=== PATIENT | male | born 1960 | race Caucasian/White ===

== ENCOUNTER 2023-02-07 07:02 | Outpatient (CLI) | payer MEDICARE, SELFPAY ==
--- NOTE | 2023-02-07 07:15 | CRLHL7_ITS ---
For Patients: As a result of the Century Cures Act, medical imaging exams and procedure reports are released immediately into your electronic medical record. You may view this report before your referring provider. If you have questions, please contact your health care provider. INDICATION: Low back and left leg pain. TECHNIQUE: Noncontrast MRI of the lumbar spine is performed in the usual fashion and compared to prior study from July 29, 2014. FINDINGS: Since the prior study there has been interval placement of bilateral transpedicular screws vertical stabilizing rods securing the L3, 4, 5 levels. Incidental hemangioma within the T12 vertebral body. Remainder of the lumbar spine demonstrates normal overall stature, alignment and intrinsic marrow signal. Conus is within normal limits. T12-L1: Unremarkable. L1-2: Minor broad-based posterior disc bulge results in no significant central canal or foraminal narrowing. L2-3: There is been interval development of severe bilateral facet arthropathy with a prominent synovial cyst emanating from the right facet that has a diameter of approximately 7 mm and extends cephalad a distance of 9 mm resulting in severe right lateral recess narrowing with compression of the right L2 nerve root prior to its exit from the right neural foramen and likely compresses the traversing right L3 nerve root within the right lateral recess. There is approximately 4 mm of fluid within both facet. Interval development of mild central canal narrowing. Moderate to severe left foraminal narrowing with compression of the exiting left L3 nerve root as well. Moderate left lateral recess narrowing. L3-4: Evidence of laminectomy. Central canal and neural foramina are patent. L4-5: Evidence of laminectomy. Central canal and neural foramina are patent. L5-S1: Central canal and neural foramina are patent. There appears to be sacralization of the L5 transverse processes. IMPRESSION: 1. Interval posterior L3-5 fusion. 2. Interval development of severe bilateral facet arthropathy at L2-3 with resultant moderate left lateral recess narrowing with mild central canal narrowing. A prominent synovial cyst emanates from the right facet and extends cephalad resulting in severe right foraminal narrowing and likely compression of the exiting right L2 as well as the traversing right L3 nerve root. Moderate to severe left foraminal narrowing is present as well resulting in compression of the exiting left L2 nerve root. 3. Milder degenerative changes within the remainder of the lumbar spine as outlined above. Dictated by Hubert Junior MD @ 02/07/2023 12:08:58 PM (Electronically Signed)
== END 2023-02-07 07:03 | disposition home or self-care (01) ==
PROVIDERS: PCP Family Medicine; Visit Provider Family Medicine
DX: M54.50 Low back pain, unspecified (principal); M51.26 Other intervertebral disc displacement, lumbar region; M79.605 Pain in left leg
CPT/HCPCS: 72148

== ENCOUNTER 2023-03-31 08:43 | Outpatient (CLI) | payer MEDICARE, SELFPAY | END 2023-03-31 08:44 | disposition home or self-care (01) | PROVIDERS: PCP Family Medicine; Visit Provider Family Medicine | DX: I10 Essential (primary) hypertension (principal); Z01.818 Encounter for other preprocedural examination | CPT/HCPCS: 80048; 85025 ==

== ENCOUNTER 2023-09-29 09:58 | Outpatient (CLI) | payer MEDICARE, SELFPAY | END 2023-09-29 09:59 | disposition home or self-care (01) | PROVIDERS: PCP Family Medicine; Visit Provider Family Medicine | DX: I10 Essential (primary) hypertension (principal); Z12.5 Encounter for screening for malignant neoplasm of prostate | CPT/HCPCS: 80048; 80061; 84153 ==

== ENCOUNTER 2023-10-12 10:43 | Emergency (ER) | payer MEDICARE, SELFPAY ==
[2023-10-12 10:56] VITALS: BP 131/93; PULSE 118; RESP 18; TEMP 36.3; O2SAT 96; BMI 30.8
--- NOTE | 2023-10-12 12:03 | ED_ITS ---
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 No other injuries. He simply washes this taped up, does not want any sutures, x-rays, or antibiotics. Moving hand fully, has normal sensation. Last tetanus was 2019 Related Data Home Medications Medication Instructions Recorded Confirmed aleeve 400 mg PO BID 10/12/23 10/12/23 Previous Rx's Medication Instructions Recorded gabapentin 600 mg tablet 1,800 mg (3 x 600 mg) PO TID #270 08/18/23 tabs amlodipine 10 mg tablet 10 mg PO QDAY #90 tabs 09/29/23 losartan 100 1 tab PO QDAY #90 tabs 09/29/23 mg-hydrochlorothiazide 25 mg tablet omeprazole 20 mg capsule,delayed 20 mg PO QDAY #90 caps 09/29/23 release Allergies Allergy/AdvReac Type Severity Reaction Status Date / Time vaccine adjuvant system, Allergy Severe arm Verified 09/29/23 09:35 AS01B lipo swelling [From Shingrix (PF)] varicella-zoster virus Allergy Severe arm Verified 09/29/23 09:35 glycoprotein swelling [From Shingrix (PF)] diclofenac Allergy Intermediate Hives Verified 09/29/23 09:35 lisinopril AdvReac Intermediate Cough Verified 09/29/23 09:35 Review of Systems Status of ROS: Reports: 6 or more systems reviewed and unremarkable except as noted in History and below [facility] Medical History (Updated 10/12/23 @ 12:06 by Nelson Rush MD) Primary hypertension ?I10 - Essential (primary) hypertension (ICD-10) Atrial fibrillation ?I48.91 - Unspecified atrial fibrillation (ICD-10) Helicobacter pylori gastritis ?K29.70 - Gastritis, unspecified, without bleeding (ICD-10) ?B96.81 - Helicobacter pylori [H. pylori] as the cause of diseases classified elsewhere (ICD-10) Lumbar facet arthropathy ?M47.816 - Spondylosis without myelopathy or radiculopathy, lumbar region (ICD-10) Gastroesophageal reflux disease ?K21.9 - Gastro-esophageal reflux disease without esophagitis (ICD-10) Fracture of both clavicles ?S42.001A - Fracture of unspecified part of right clavicle, initial encounter for closed fracture (ICD-10) ?S42.002A - Fracture of unspecified part of left clavicle, initial encounter for closed fracture (ICD-10) Spinal stenosis, lumbar region with neurogenic claudication ?M48.062 - Spinal stenosis, lumbar region with neurogenic claudication (ICD- 10) Surgical History (Updated 01/15/23 @ 10:43 by Dariel Monreal MD) Tibia/fibula fracture ?S82.209A - Unspecified fracture of shaft of unspecified tibia, initial encounter for closed fracture (ICD-10) ?S82.409A - Unspecified fracture of shaft of unspecified fibula, initial encounter for closed fracture (ICD-10) History of fusion of cervical spine ?Z98.1 - Arthrodesis status (ICD-10) History of lumbar spinal fusion ?Z98.1 - Arthrodesis status (ICD-10) Family History (Updated 10/04/22 @ 21:02 by Dariel Monreal MD) Father Alzheimers disease Social History (Updated 10/10/23 @ 20:36 by Dariel Monreal MD) Narrative: , social ETOH, nonsmoker, retired What is your current living situation?: I presently have a place to live Problems where you live: no known problems In the past 12 months, utilities in danger of being shut off: no In past 12 months, lack of transportation kept you from medical appts, meetings, work, or getting things needed for daily living: no In the past 12 mos, have been you worried that your food would run out before you had money to buy more?: never true In the past 12 mos, the food you bought just didn't last and you didn't have money to buy more?: never true Smoking Status: Former smoker How often does anyone, including family, friends and others, physically hurt you : never How often does anyone, including family, friends and others, insult or talk down to you: never How often does anyone, including family, friends and others, threaten you with harm: never How often does anyone, including family, friends and others, scream or curse at you: never Little interest or pleasure in doing things: not at all Feeling down, depressed, or hopeless: not at all Exam Narrative: Exam Narrative: Objective: Patient has 2 lacerations the back of his right hand, neither are down to bone. They peers just through the dermis, slightly gaping. One is about 4 cm and 1 is 2 cm. Normal neurovascular function and tendon function in the hand with full extension flexion of his hand specifically his thumb and index finger. The lacerations lie over his 1st metacarpal. Inspection of the wound showed no debris no foreign body, and no tendon involvement obvious. Const: Vital Signs, click to edit/add: Vital Signs - 24 hr 10/12/23 10:56 Temperature 97.3 F L Pulse Rate [Left P ulse Oximeter] 118 H Respiratory Rate 18 Blood Pressure [Le ft Upper Arm] 131/93 H Pulse Oximetry 96 Oxygen Delivery Me thod Room Air Course Vital Signs Vital signs: Initial Vital Signs Temperature 97.3 F L 10/12/23 10:56 Temperature Source Temporal Artery Scan 10/12/23 10:56 Pulse Rate 118 H 10/12/23 10:56 Respiratory Rate 18 10/12/23 10:56 Blood Pressure 131/93 H 10/12/23 10:56 Blood Pressure Mean 105 10/12/23 10:56 Blood Pressure Position Sitting 10/12/23 10:56 Pulse Oximetry 96 10/12/23 10:56 Oxygen Delivery Method Room Air 10/12/23 10:56 Vital Signs Temperature 97.3 F L 10/12/23 10:56 Pulse Rate 118 H 10/12/23 10:56 Respiratory Rate 18 10/12/23 10:56 Blood Pressure 131/93 H 10/12/23 10:56 Pulse Oximetry 96 10/12/23 10:56 Oxygen Delivery Method Room Air 10/12/23 10:56 Temperature 97.3 F L 10/12/23 10:56 Pulse Rate 118 H 10/12/23 10:56 Respiratory Rate 18 10/12/23 10:56 Blood Pressure 131/93 H 10/12/23 10:56 Pulse Oximetry 96 10/12/23 10:56 Oxygen Delivery Method Room Air 10/12/23 10:56 Medical Decision Making MDM Narrative Medical decision making narrative: [age] male with 2 lacerations to the back of his right hand he wishes to have no sutures although that is my recommendation, he wishes no x- ray, and he is up-to-date on tetanus. I also recommend he use antibiotics but he declines this. Would recommend Steri-Stripping and keep these on until they fall off in the next 5-7 days, keep them dry for the next several days. Return if problems or concerns, redness, pain, difficulty variant range of motion of his hand. At this point has a normal neurovascular and tendon exam, but may need this reassessed Discharge Plan Discharge Clinical Impression: Hand laceration Patient Disposition: Home, Self-Care Condition: Improved Additional Instructions: Keep covered until the Steri-Strips come off. This could be 5-7 days. Watch for redness infection. Return if problems or concerns. Light use of the hand be recommended Activity Level: Light activity Discharge Diet: Regular Prescriptions: No Action losartan-hydrochlorothiazide 100-25 mg tablet 1 tab PO QDAY Qty: 90 3RF omeprazole 20 mg capsule,delayed release(DR/EC) 20 mg PO QDAY Qty: 90 3RF amlodipine 10 mg tablet 10 mg PO QDAY Qty: 90 3RF aleeve 400 mg PO BID gabapentin 600 mg tablet 1,800 mg PO TID Qty: 270 1RF Follow Up/Referrals: Dariel Monreal MD [Primary Care Provider] - Stand Alone Forms: [employer] Info Instructions
--- NOTE | 2023-10-12 12:12 | ED.NURSE ---
ound care performed by [facility],
--- NOTE | 2023-10-12 12:13 | ED.NURSE ---
Hand cleaned and dried off, tincture of benzoin applied, steri-strips applied and pt understands instructions to keep wounds clean and dry.
== END 2023-10-12 12:14 | disposition home or self-care (01) ==
LOC: ED 12:09
PROVIDERS: Emergency Provider Family Medicine; PCP Family Medicine
DX: S61.411A Laceration without foreign body of right hand, initial encounter (principal); W31.89XA Contact with other specified machinery, initial encounter
CPT/HCPCS: 12002; 99282; 99283

== ENCOUNTER 2024-06-19 11:44 | Outpatient (CLI) | payer MEDICARE, SELFPAY | END 2024-06-19 11:45 | disposition home or self-care (01) | PROVIDERS: PCP Family Medicine; Visit Provider Family Medicine | DX: I10 Essential (primary) hypertension (principal); Z13.220 Encounter for screening for lipoid disorders | CPT/HCPCS: 80048; 80061 ==

== ENCOUNTER 2025-04-10 12:08 | Emergency (ER) | payer MEDICARE, OTHER, SELFPAY ==
--- OUTSIDE RECORDS SUMMARY | 2025-04-10 12:10 | XMS_ITS | Clinical Summary ---
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 States physician told him it was an allergic reaction. Medications losartan-hydro chlorothiazide , 50-12.5 mg, (HYZAAR) 50-12.5 mg tablet Take 1 tablet by mouth once daily. 30 tablet 1 1 Active gabapentin (NEURONTIN) 600 mg tablet Take 1,800 mg by mouth three times daily. Active amLODIPine (NORVASC) 10 mg tablet Take 10 mg by mouth once daily. Active Omeprazole Magnesium 20 mg cpDR Take 20 mg by mouth once daily. Active acetaminophen (TYLENOL EXTRA STRGTH) 500 mg tabletIndicati ons:Spinal stenosis of lumbar region with neurogenic claudication,P ostoperative pain after spinal surgery Take 2 Tablets (1,000 mg) by mouth every 6 hours. Max acetaminophen dose: 4000mg in 24 hrs. 0 3 Active cyclobenzaprin e (FLEXERIL) 10 mg tabletIndicati ons:Spinal stenosis of lumbar region with neurogenic claudication,P ostoperative pain after spinal surgery Take 1 Tablet (10 mg) by mouth every 8 hours if needed for Muscle Spasm. 30 Tablet 04/22/2023 5:38 PM CDT 3 Active sennosides-doc usate (SENOKOT S) (8.6-50 mg) tabletIndicati ons:Spinal stenosis of lumbar region with neurogenic claudication,P ostoperative pain after spinal surgery Take 1-4 Tablets by mouth two times daily. 30 Tablet 04/24/2023 8:57 AM CDT 3 Active oxyCODONE (ROXICODONE) 5 mg immediate release tabletIndicati ons:Post-op pain Take 1 Tablet (5 mg) by mouth every 4 hours if needed for Pain. 42 Tablet 3 Active Active Problems Problem Noted Date Diagnosed Date Lumbar spinal stenosis 04/20/2023 Spinal stenosis 07/29/2015 S/P cervical spinal fusion 07/29/2015 HTN (hypertension) 07/29/2015 PONV (postoperative nausea and vomiting) 015 GERD (gastroesophageal reflux disease) 5 Family History Medical History Relation Name Comments Good Health Brother Hypertension Father Other Father prostate ca Other Mother uterine ca Good Health Sister 1 Good Health Sister 2 Good Health Sister 3 Relation Name Status Comments Brother Father Alive Mother Alive Sister 1 Sister 2 Sister 3 Social History Tobacco Use Types Packs/Day Years Used Date Smoking Tobacco: Never Smokeless Tobacco: Never Tobacco Cessation:Counseling Given: No Alcohol Use Standard Drinks/Week Comments Yes 0 (1 standard drink = 0.6 oz pur e alcohol) occasional weekend use Social Connections Answer Date Recorded Frequency of Communication with Friends and Fami ly Not on file 04/20/2023 Sex and Gender Information Value Date Recorded Sex Assigned at Not on file 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 Gender Identity Not on file Sexual Orientation Not on file 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 Not on file Not on file Not on fi le Obstetrics History Last Filed Vital Signs Vital Sign Reading Time Taken Comments Blood Pressure 104/66 04/23/2023 12:00 PM CDT Pulse 86 04/23/2023 12:00 PM CDT Temperature 36.9 C (98.4 F) 04/23/2023 8:00 AM CDT Respiratory Rate 16 04/23/2023 12:0 0 PM CDT Oxygen Saturation 95% 04/23/2023 12: 00 PM CDT Inhaled Oxygen Concentration - - Weight 92.4 kg (203 lb 11.3 oz) 04/20/2023 9:15 AM CDT Height 177.8 cm (5' 10) 04/20/2023 9:15 AM CDT Body Mass Index 29.23 04/20/2023 9:15 AM CDT Plan of Treatment Health Maintenance Due Date Last Done Comments (IA) Tdap 01/23/1971 Depression screening for age 12+ 1972 HIV for age 15-65 01/23/1975 BMI (ht and wt on same day) for age 18+ 01/23/1978 Hepatitis C screening for ag e 18-79 01/23/1978 Tetanus booster 1980 Colonoscopy through age 75 01/23/2005 Pneumococcal series for age 50+ (1 of 1 - PCV) 01/23/2010 Zoster (shingles) series for age 50+ (1 of 2) 01/23/2010 Lipids for age 45-75 06/26/2015 06/26/2010 COVID-19 vaccine series (3 season) 2024 03/26/2021, 02/25/2021 Influenza Vaccine (#1) 2025 RSV vaccine for adults or (1 - 1-dose 75+ series) 01/23/2035 Hepatitis B series for 19+ Aged Out N o longer eligible based on patient's age to complete this topic Medical Devices Implanted Type Area Cycle Repairer Device Identifier Shelf Expiration Date Model / Serial / Lot [id number] 21bone 30cc Mtf Crushed Canclls Pouch [[id number]] Implanted:Qty: 1 on 08/08/2015 by JoseD aniel Ford MD at [facility] Explanted:at [facility] (Quantity not on file) Spine Musculoskeletal Transplant 04/20/2018 [id number] / [id number] / [id number] one 60cc Allosource Crushed Canclls [[id number]] Implanted:Qty: 1 on 08/08/2015 by Jose Daniel Fodr MD at [facility] Explanted:at [facility] (Quantity not on file) Spine Allosource 03/23/2020 [id number] / [id number] / [id number] 60cc Allosource Crushed Canclls [[id number]] Implanted:Qty: 1 on 08/08/2015 by Jose Daniel Ford MD at [facility] Explanted:at [facility] (Quantity not on file) Spine Allosource 10/12/2017 [id number] / [id number] / Dura 1x1in Duragen Plus Non-Baxter - [id number] Implanted:Qty: 1 on 08/08/2015 by Jose Daniel Ford MD at [facility] Spine [employer] Caroline [id number] / / [id number] Set Screw Lmbr Ant 5.5mm Solera Break Off - [id number] Implanted:Qty: 6 on 08/08/2015 by Jose Daniel Ford MD at [facility] Spine Medtronic Spine/Ortho [id number] / / Screw Lmbr Post 6.5x45mm Solera 5.5/6 Va Cocr - [id number] Implanted:Qty: 6 on 08/08/2015 by Jose Daniel Ford MD at [facility] Spine Medtronic Spine/Ortho [id number] / / Giovanny Lmbr 80x5.5mm Solera 5.5/6cvd Titnm - [id number] Implanted:Qty: 2 on 08/08/2015 by Jose Daniel Ford MD at [facility] Spine Medtronic Spine/Ortho [id number] / / Hedron L Spacer, 18x55, 15mm, 10 Degree Implanted:Qty: 1 on 04/20/2023 by Jose Daniel Ford MD at [facility] N/A: Lumbar Vertebrae [employer] 07/26/2032 [id number] / / [id number] Description:Right Sided Appr oach, ANTERIOR SPINE INTERBODY FUSION GLOBUS L2 L3 Bone 1-4mm 60cc Medtronic Fine Canclls Freeze Dried - [id number] Implanted:Qty: 1 on 04/20/2023 by Jose Daniel Ford MD at [facility] N/A: Lumbar Vertebrae Medtronic Spine/Ortho 12/10/2026 [id number] / [id number] / [id number] Description:Posterior Approa ch, POSTERIOR SPINE FUSION WITH INSTRUMENTATION L2 L3 Screw Lmbr Post 6.5x45mm Solera 5.5/6 Va Cocr - [id number] Implanted:Qty: 2 on 04/20/2023 by Jose Daniel Ford MD at [facility] N/A: Lumbar Vertebrae Medtronic Spine/Ortho [id number] / / Description:Posterior Approa ch, POSTERIOR SPINE FUSION WITH INSTRUMENTATION L2 L3 Set Screw Lmbr Ant 5.5mm Solera Break Off - [id number] Implanted:Qty: 2 on 04/20/2023 by Jose Daniel Ford MD at [facility] N/A: Lumbar Vertebrae Medtronic Spine/Ortho [id number] / / Description:Posterior Approa ch, POSTERIOR SPINE FUSION WITH INSTRUMENTATION L2 L3 Cnnctr Lmbr 5.5x5.5mm Giovanny Connect Variable Titnm Gerald - [id number] Implanted:Qty: 2 on 04/20/2023 by Jose Daniel Ford MD at [facility] N/A: Lumbar Vertebrae Medtronic Spine/Ortho [id number] / / Description:Posterior Approa ch, POSTERIOR SPINE FUSION WITH INSTRUMENTATION L2 L3 Set Screw Lmbr Std Giovanny Connection Titnm - [id number] Implanted:Qty: 4 on 04/20/2023 by Jose Daniel Ford MD at [facility] N/A: Lumbar Vertebrae Medtronic Spine/Ortho [id number] / / Description:Posterior Approa ch, POSTERIOR SPINE FUSION WITH INSTRUMENTATION L2 L3 Giovanny Lmbr 45x5.5mm Solera 5.5/6 Cvd Titnm - [id number] Implanted:Qty: 2 on 04/20/2023 by Jose Daniel Ford MD at [facility] N/A: Lumbar Vertebrae Medtronic Spine/Ortho [id number] / / Description:Posterior Approa ch, POSTERIOR SPINE FUSION WITH INSTRUMENTATION L2 L3 Ifactor Bone Graft Implanted:Qty: 1 on 04/20/2023 by Jose Daniel Ford MD at [facility] N/A: Lumbar Vertebrae [employer] 08/09/2025 [id number] / / [id number] Description:Right Sided Appr oach, ANTERIOR SPINE INTERBODY FUSION GLOBUS L2 L3 Graft Bone 5cc Allosync Expand [facility] - [id number] Implanted:Qty: 1 on 04/20/2023 by Jose Daniel Ford MD at [facility] N/A: Lumbar Vertebrae [employer] 12/07/2024 ABS-2017-05 / [id number] / [id number] Description:Right Sided Appr oach, ANTERIOR SPINE INTERBODY FUSION GLOBUS L2 L3 Explanted Type Area Cycle Repairer Device Identifier Shelf Expiration Date Model / Serial / Lot K-Wire 2pk - [id number] Explanted:Qty : 2 on 04/20/2023 by Jose Daniel Ford MD at [facility] N/A: Lumbar Vertebrae [employer] [id number] / / Procedures Procedure Name Priority Date/Time Associated Diagnosis Comments LIPID PANEL W REFLEX MEASURED LDL Routine 06/26/2010 4:31 PM CDT Screening for ischemic heart disease from Last 3 Months or Most Recently Relevant to Health Maintenance Results * LIPID PANEL W REFLEX MEASURED LDL (06/26/2010 4:31 PM CDT) CHOLESTEROL,TOTAL 162 110 - 199 mg/dL [facility] TRIGLYCERIDES 47 <150 mg/dL [facility] HDL CHOLESTEROL 63 >40 mg/dL [facility] CHOL/HDL RATIO 2.57 <4.51 [facility] LDL CHOLESTEROL 90 <131 mg/dL [facility] PATIENT STATUS Fasting [facility] Blood specimen (specimen) BLOOD SPECIMEN / Unknown 06/26/2010 4:31 PM CDT 06/26/2010 4:24 PM CDT us Dariel Guido MD CHEMISTRY Final Resu lt [facility] [address] [place] [address] from Last 3 Months or Most Recently Relevant to Health Maintenance Insurance MEDICARE PART A HB ONLY [facility] * Guarantor: ANNAMARIE MONTEIRO PX Account Type Relation to Patient Date of Phone Billing Address [facility] [place] [address] Advance Directives * Full Code (Latest Code Status on File) Date Activated Date Inactivated Comments 04/20/2023 8:45 PM 04/23/2023 5:58 PM Question Answer Comments Code Status Discussion: Reviewed Preferences * Full Code Date Activated Date Inactivated Comments 08/08/2015 4:09 PM 08/11/2015 2:26 PM * Full Code Date Activated Date Inactivated Comments 08/08/2015 5:26 AM 08/08/2015 4:09 PM Care Teams [employer] Farmer Relationship Specialty Start Date End Date Dariel Monreal MD [address] [place] [address] PCP - General Family Practice 03/30/23
[2025-04-10 12:14] VITALS: BP 114/71; PULSE 76; RESP 16; TEMP 36.8; O2SAT 95; BMI 32.3
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
== END 2025-04-10 13:02 | disposition home or self-care (01) ==
PROVIDERS: Emergency Provider Emergency Medicine Emergency Medical Services; PCP Family Medicine
DX: S01.111A Laceration without foreign body of right eyelid and periocular area, initial encounter (principal); W22.8XXA Striking against or struck by other objects, initial encounter
CPT/HCPCS: 12011; 99282; 99284

== ENCOUNTER 2025-07-30 07:59 | Outpatient (CLI) | payer MEDICARE, OTHER, SELFPAY | END 2025-07-30 08:00 | disposition home or self-care (01) | PROVIDERS: PCP Family Medicine; Visit Provider Family Medicine | DX: I10 Essential (primary) hypertension (principal); Z12.5 Encounter for screening for malignant neoplasm of prostate | CPT/HCPCS: 80048; 80061; G0103 ==